=== PATIENT | male | born 1975 | race Caucasian/White ===

== ENCOUNTER 2018-01-28 21:14 | Inpatient (IN) ==
[2018-01-28] MEDS ORDERED: KETOROLAC 30 MG/1 ML VIAL IV STA (23:17)
[2018-01-28] MEDS ORDERED: MECLIZINE 25 MG TABLET PO STA (23:18)
[2018-01-28] MEDS ORDERED: hydrALAZINE 20 MG/1 ML VIAL IV STA (23:18)
[2018-01-29 00:04] LABS: Basophils % 0.2 % (0.0-0.8); Eosinophils # 0.1 10*3/uL (0.0-0.87); Hematocrit 37.9 VOL% (42.0-52.0); Hemoglobin 14.6 GM/DL (14.0-18.0); Immature Granulocytes % 0.7 %; Immature Granulocytes Absolute 0.06 #; Lymphocytes # 0.6 10*3/uL (1.4-4.0); Lymphocytes % 6.8 % (21.2-54.2); Mean Corpuscular HGB Conc 38.5 GM/DL (32-36); Mean Corpuscular Hemoglobin 34 PG (27-34); Mean Corpuscular Volume 88.3 FL (87-102); Mean Platelet Volume 9.7 FL (9.6-12.0); Monocytes # 0.7 10*3/uL (0.11-0.8); Monocytes % 8.5 % (1.7-12.7); Neutrophils # 6.9 10*3/uL (1.4-7.4); Neutrophils % 82.8 % (38.7-73.9); Platelet Count 117 T/CUMM (130-400); Red Blood Count 4.29 MC/CUMM (3.8-5.5); Red Cell Distribution Width 11.9 % (9.3-17.3); White Blood Count 8.4 T/CUMM (4-12)
[2018-01-29 00:12] LABS: Albumin 4.3 G/DL (3.4-5.0); Bilirubin,Total 1.9 MG/DL (0.2-1.0); Calcium 8.5 MG/DL (8.5-10.1); Potassium 3.6 MMOL/L (3.5-5.1); Total Protein 8.7 G/DL (6.4-8.3)
[2018-01-29] MEDS ORDERED: SODIUM CHLORIDE 3% INJ 500 ML IV SCH ×3 (00:30→14:05)
[2018-01-29 01:19] LABS: Calcium 8.3 MG/DL (8.5-10.1); Potassium 3.2 MMOL/L (3.5-5.1)
[2018-01-29] MEDS ORDERED: LORazepam 2 MG/1 ML VIAL ONE (08:45)
[2018-01-29] MEDS ORDERED: FUROSEMIDE 20 MG/2 ML VIAL IV ONE (09:04)
[2018-01-29 12:05] LABS: Apearance,Urine CLEAR (Clear); Bilirubin,Urine Negative (Negative); Blood, Urine Negative (Negative); Glucose,Urine (UA) Negative (Negative); Ketones,Urine 20 mg/dL (Negative); Mucus,Urine Occasional /LPF (Occasional); Nitrite,Urine Negative (Negative); Protein,Urine Negative; RBC,Urine <1 /HPF (0-4); Urine Color Yellow (Yellow); Urine Specific Gravity 1.006 (1.001-1.035); WBC,Urine 1 /HPF (0-6)
[2018-01-29] MEDS ORDERED: CLORAZEPATE 3.75 MG TABLET ONE (17:41)
[2018-01-29] MEDS: CLORAZEPATE 7.5 MG TABLET PO SCH ×2 (17:42→21:25)
[2018-01-29] MEDS ORDERED: POTASSIUM CHLORIDE 20 MEQ TABLET PO PRN (18:54)
[2018-01-29] MEDS: METOPROLOL TARTRATE 50 MG TABLET PO SCH (21:25)
[2018-01-29] MEDS ORDERED: DEXTROSE 5% 1,000 ML IV SCH (23:00)
[2018-01-30] MEDS ORDERED: LORazepam 2 MG/1 ML VIAL IM PRN (00:54)
[2018-01-30] MEDS ORDERED: DEXT 5% NACL 0.9% KCL 20 MEQ 20 MEQ/1,000 ML BAG IV SCH (01:30)
[2018-01-30] MEDS: POTASSIUM CHLORIDE INJ 20 MEQ, MAGNESIUM SULF INJ 1 GM in DEXTROSE 5% NACL 0.9% 1,000 ML IV SCH ×3 (01:39→21:53)
[2018-01-30 04:19] LABS: Basophils % 0.3 % (0.0-0.8); Eosinophils # 0.1 10*3/uL (0.0-0.87); Eosinophils % 1.4 % (0.00-10.9); Immature Granulocytes % 0.5 %; Immature Granulocytes Absolute 0.03 #; Lymphocytes # 0.3 10*3/uL (1.4-4.0); Lymphocytes % 4.8 % (21.2-54.2); Mean Corpuscular HGB Conc 37.2 GM/DL (32-36); Mean Corpuscular Hemoglobin 34 PG (27-34); Mean Corpuscular Volume 90.5 FL (87-102); Mean Platelet Volume 10.7 FL (9.6-12.0); Monocytes # 0.5 10*3/uL (0.11-0.8); Monocytes % 7.4 % (1.7-12.7); Neutrophils # 5.5 10*3/uL (1.4-7.4); Neutrophils % 85.6 % (38.7-73.9); Platelet Count 86 T/CUMM (130-400); Red Blood Count 3.98 MC/CUMM (3.8-5.5); Red Cell Distribution Width 11.9 % (9.3-17.3); White Blood Count 6.5 T/CUMM (4-12)
[2018-01-30 04:32] LABS: Hemoglobin 13.3 GM/DL (14.0-18.0)
[2018-01-30 04:45] LABS: Albumin 3.7 G/DL (3.4-5.0); Bilirubin,Total 2.2 MG/DL (0.2-1.0); Calcium 8.1 MG/DL (8.5-10.1); Free T4 (Free Thyroxine) 1.05 NG/DL (0.76-1.46); Osmolality,Calculated 228.9 MOS/KG (273-304); Potassium 3.2 MMOL/L (3.5-5.1); Thyroid Stimulating Hormone 2.16 uIU/ml (0.358-3.74); Total Protein 7.4 G/DL (6.4-8.3)
[2018-01-30 04:58] LABS: Hypochromasia 1+; Lymphocytes 6 % (20-55); Platelet Estimate Decreased; Segmented Neutrophils 89 % (50-85); Total Cells Counted 100
[2018-01-30 05:40] LABS: Hepatitis A Ab IgM Result Negative (Negative); Hepatitis B Core IgM Quant < 0.05 Index; Hepatitis B Core IgM Result Negative (Negative); Hepatitis B Surface Ag Quant 0.42 Index; Hepatitis B Surface Ag Result Negative (Negative); Hepatitis C Virus Ab Quant 0.14 Index; Hepatitis C Virus Ab Result Negative (Negative)
[2018-01-30 06:59] LABS: Apearance,Urine CLEAR (Clear); Bilirubin,Urine Negative (Negative); Blood, Urine Small mg/dL (Negative); Glucose,Urine (UA) Negative (Negative); Ketones,Urine 5 mg/dL (Negative); Nitrite,Urine Negative (Negative); Protein,Urine Negative; RBC,Urine <1 /HPF (0-4); Squamous Epithelial Cell,Urine Occasional /HPF (0-10); Urine Color Yellow (Yellow); Urine Specific Gravity 1.005 (1.001-1.035); WBC,Urine 3 /HPF (0-6)
[2018-01-30] MEDS ORDERED: FOLIC ACID 5 MG/1 ML VIAL IM SCH (09:00)
[2018-01-30] MEDS: MULTIVITAMIN (BEROCCA) TABLET PO SCH (09:33)
[2018-01-30] MEDS: FOLIC ACID INJ 1 MG in SYRINGE 1 EACH IV SCH (09:33)
[2018-01-30] MEDS: CLORAZEPATE 7.5 MG TABLET PO SCH ×3 (09:33→21:33)
[2018-01-30] MEDS: METOPROLOL TARTRATE 50 MG TABLET PO SCH ×3 (09:33→21:45)
[2018-01-30] MEDS: LORazepam 2 MG/1 ML VIAL IV PRN ×4 (10:07→21:57)
[2018-01-30] MEDS ORDERED: LORazepam 2 MG/1 ML VIAL IV ONE ×2 (12:56→13:30)
[2018-01-30] MEDS ORDERED: LORazepam 2 MG/1 ML VIAL IV PRN (13:24)
[2018-01-30] MEDS ORDERED: cefTRIAXone 1,000 MG VIAL IV SCH (21:00)
[2018-01-30] MEDS: cefTRIAXone 1,000 MG in SYRINGE 1 EACH IV SCH (21:47)
[2018-01-31] MEDS: LORazepam 2 MG/1 ML VIAL IV PRN ×10 (00:06→19:37)
[2018-01-31 05:53] LABS: Basophils % 0.3 % (0.0-0.8); Eosinophils # 0.1 10*3/uL (0.0-0.87); Eosinophils % 1.6 % (0.00-10.9); Hematocrit 39.2 VOL% (42.0-52.0); Hemoglobin 14.2 GM/DL (14.0-18.0); Immature Granulocytes % 1.1 %; Immature Granulocytes Absolute 0.07 #; Lymphocytes # 0.5 10*3/uL (1.4-4.0); Lymphocytes % 7.1 % (21.2-54.2); Mean Corpuscular HGB Conc 36.2 GM/DL (32-36); Mean Corpuscular Hemoglobin 34 PG (27-34); Mean Corpuscular Volume 94.9 FL (87-102); Monocytes # 0.8 10*3/uL (0.11-0.8); Monocytes % 11.8 % (1.7-12.7); Neutrophils # 4.9 10*3/uL (1.4-7.4); Neutrophils % 78.1 % (38.7-73.9); Platelet Count 105 T/CUMM (130-400); Red Blood Count 4.13 MC/CUMM (3.8-5.5); White Blood Count 6.3 T/CUMM (4-12)
[2018-01-31 05:58] LABS: Apearance,Urine CLEAR (Clear); Bacteria,Urine Occasional /HPF (Few); Bilirubin,Urine Negative (Negative); Blood, Urine Moderate mg/dL (Negative); Glucose,Urine (UA) 50 mg/dL (Negative); Ketones,Urine Negative (Negative); Mucus,Urine Occasional /LPF (Occasional); Nitrite,Urine Negative (Negative); Protein,Urine Negative; RBC,Urine 3 /HPF (0-4); Urine Color Yellow (Yellow); Urine Specific Gravity 1.009 (1.001-1.035); WBC,Urine 4 /HPF (0-6)
[2018-01-31 06:08] LABS: Albumin 3.5 G/DL (3.4-5.0); Bilirubin,Total 1.1 MG/DL (0.2-1.0); Calcium 7.6 MG/DL (8.5-10.1); Osmolality,Calculated 241.9 MOS/KG (273-304); Potassium 3.1 MMOL/L (3.5-5.1); Risk Ratio 1.71; Total Protein 7.4 G/DL (6.4-8.3)
[2018-01-31] MEDS: POTASSIUM CHLORIDE INJ 20 MEQ, MAGNESIUM SULF INJ 1 GM in DEXTROSE 5% NACL 0.9% 1,000 ML IV SCH ×3 (07:51→19:52)
[2018-01-31] MEDS: POTASSIUM CHLORIDE RIDER 10 MEQ in PREMIX 1 EACH IV PRN (08:14)
[2018-01-31] MEDS ORDERED: cloNIDine 0.1 MG TABLET PO SCH (09:00)
[2018-01-31] MEDS ORDERED: cloNIDine 0.1 MG/24 HR PATCH TRANSDERM SCH (09:00)
[2018-01-31] MEDS: FOLIC ACID INJ 1 MG in SYRINGE 1 EACH IV SCH (09:10)
[2018-01-31] MEDS: MULTIVITAMIN (BEROCCA) TABLET PO SCH (09:49)
[2018-01-31] MEDS: CLORAZEPATE 7.5 MG TABLET PO SCH ×4 (09:49→21:26)
[2018-01-31] MEDS: METOPROLOL TARTRATE 50 MG TABLET PO SCH ×2 (11:23→21:26)
[2018-01-31] MEDS: cefTRIAXone 1,000 MG in SYRINGE 1 EACH IV SCH (21:23)
[2018-02-01] MEDS: LORazepam 2 MG/1 ML VIAL IV PRN ×9 (00:33→19:31)
[2018-02-01 05:36] LABS: Basophils % 0.4 % (0.0-0.8); Eosinophils # 0.2 10*3/uL (0.0-0.87); Eosinophils % 3.7 % (0.00-10.9); Hematocrit 34.7 VOL% (42.0-52.0); Hemoglobin 12.6 GM/DL (14.0-18.0); Immature Granulocytes % 1.1 %; Immature Granulocytes Absolute 0.05 #; Lymphocytes # 0.5 10*3/uL (1.4-4.0); Lymphocytes % 10.8 % (21.2-54.2); Mean Corpuscular HGB Conc 36.3 GM/DL (32-36); Mean Corpuscular Hemoglobin 34 PG (27-34); Mean Corpuscular Volume 93.3 FL (87-102); Mean Platelet Volume 10.2 FL (9.6-12.0); Monocytes # 0.5 10*3/uL (0.11-0.8); Monocytes % 11.7 % (1.7-12.7); Neutrophils # 3.3 10*3/uL (1.4-7.4); Neutrophils % 72.3 % (38.7-73.9); Platelet Count 105 T/CUMM (130-400); Red Blood Count 3.72 MC/CUMM (3.8-5.5); Red Cell Distribution Width 12.1 % (9.3-17.3); White Blood Count 4.6 T/CUMM (4-12)
[2018-02-01 05:57] LABS: Albumin 3.3 G/DL (3.4-5.0); Bilirubin,Total 1.5 MG/DL (0.2-1.0); Osmolality,Calculated 255.1 MOS/KG (273-304); Potassium 3.6 MMOL/L (3.5-5.1); Total Protein 6.6 G/DL (6.4-8.3)
[2018-02-01] MEDS: POTASSIUM CHLORIDE INJ 20 MEQ, MAGNESIUM SULF INJ 1 GM in DEXTROSE 5% NACL 0.9% 1,000 ML IV SCH ×2 (06:08→17:03)
[2018-02-01] MEDS: CLORAZEPATE 7.5 MG TABLET PO SCH ×3 (08:59→21:30)
[2018-02-01] MEDS: METOPROLOL TARTRATE 50 MG TABLET PO SCH ×2 (09:00→21:07)
[2018-02-01] MEDS: MULTIVITAMIN (BEROCCA) TABLET PO SCH (09:05)
[2018-02-01] MEDS: FOLIC ACID INJ 1 MG in SYRINGE 1 EACH IV SCH (09:32)
[2018-02-01] MEDS: cefTRIAXone 1,000 MG in SYRINGE 1 EACH IV SCH (21:04)
[2018-02-02 04:32] LABS: Basophils % 0.4 % (0.0-0.8); Eosinophils # 0.1 10*3/uL (0.0-0.87); Eosinophils % 2.6 % (0.00-10.9); Hematocrit 38.6 VOL% (42.0-52.0); Hemoglobin 13.4 GM/DL (14.0-18.0); Immature Granulocytes Absolute 0.05 #; Lymphocytes # 0.4 10*3/uL (1.4-4.0); Lymphocytes % 8.7 % (21.2-54.2); Mean Corpuscular HGB Conc 34.7 GM/DL (32-36); Mean Corpuscular Hemoglobin 33 PG (27-34); Mean Corpuscular Volume 94.4 FL (87-102); Monocytes # 0.7 10*3/uL (0.11-0.8); Monocytes % 14.3 % (1.7-12.7); Neutrophils # 3.7 10*3/uL (1.4-7.4); Platelet Count 131 T/CUMM (130-400); Red Blood Count 4.09 MC/CUMM (3.8-5.5); Red Cell Distribution Width 12.5 % (9.3-17.3); White Blood Count 5.1 T/CUMM (4-12)
[2018-02-02 05:01] LABS: Albumin 3.7 G/DL (3.4-5.0); Bilirubin,Total 0.8 MG/DL (0.2-1.0); Calcium 8.7 MG/DL (8.5-10.1); Osmolality,Calculated 259.7 MOS/KG (273-304); Potassium 3.8 MMOL/L (3.5-5.1); Total Protein 7.6 G/DL (6.4-8.3)
[2018-02-02] MEDS: POTASSIUM CHLORIDE INJ 20 MEQ, MAGNESIUM SULF INJ 1 GM in DEXTROSE 5% NACL 0.9% 1,000 ML IV SCH ×3 (07:06→19:46)
[2018-02-02] MEDS: MULTIVITAMIN (BEROCCA) TABLET PO SCH (08:52)
[2018-02-02] MEDS: METOPROLOL TARTRATE 50 MG TABLET PO SCH ×2 (08:52→20:29)
[2018-02-02] MEDS: FOLIC ACID INJ 1 MG in SYRINGE 1 EACH IV SCH (09:25)
[2018-02-02] MEDS: CLORAZEPATE 7.5 MG TABLET PO SCH ×3 (12:39→20:29)
[2018-02-02] MEDS: cefTRIAXone 1,000 MG in SYRINGE 1 EACH IV SCH (20:29)
[2018-02-02] MEDS: LORazepam 2 MG/1 ML VIAL IV PRN ×3 (20:43→23:29)
[2018-02-03] MEDS ORDERED: HALOPERIDOL 5 MG/ML AMP ONE (00:45)
[2018-02-03] MEDS: HALOPERIDOL 5 MG/ML AMP IV PRN (00:48)
[2018-02-03] MEDS: cloNIDine 0.1 MG TABLET PO PRN ×3 (02:19→22:04)
[2018-02-03] MEDS: LORazepam 2 MG/1 ML VIAL IV PRN ×2 (02:21→16:45)
[2018-02-03 03:38] LABS: Basophils % 0.6 % (0.0-0.8); Eosinophils # 0.2 10*3/uL (0.0-0.87); Eosinophils % 2.6 % (0.00-10.9); Hematocrit 35.5 VOL% (42.0-52.0); Hemoglobin 12.5 GM/DL (14.0-18.0); Immature Granulocytes % 0.9 %; Immature Granulocytes Absolute 0.06 #; Lymphocytes # 0.7 10*3/uL (1.4-4.0); Lymphocytes % 10.1 % (21.2-54.2); Mean Corpuscular HGB Conc 35.2 GM/DL (32-36); Mean Corpuscular Hemoglobin 33 PG (27-34); Mean Corpuscular Volume 94.9 FL (87-102); Mean Platelet Volume 9.7 FL (9.6-12.0); Monocytes # 1.1 10*3/uL (0.11-0.8); Monocytes % 17.7 % (1.7-12.7); Neutrophils # 4.4 10*3/uL (1.4-7.4); Neutrophils % 68.1 % (38.7-73.9); Platelet Count 127 T/CUMM (130-400); Red Blood Count 3.74 MC/CUMM (3.8-5.5); Red Cell Distribution Width 12.3 % (9.3-17.3); White Blood Count 6.5 T/CUMM (4-12)
[2018-02-03 04:03] LABS: Albumin 3.3 G/DL (3.4-5.0); Bilirubin,Total 0.9 MG/DL (0.2-1.0); Calcium 8.1 MG/DL (8.5-10.1); Total Protein 7.1 G/DL (6.4-8.3)
[2018-02-03 04:04] LABS: Osmolality,Calculated 255.1 MOS/KG (273-304)
[2018-02-03 04:18] LABS: Eosinophils 3 % (0-10); Lymphocytes 16 % (20-55); Platelet Estimate Adequate; Polychromasia Few; Segmented Neutrophils 66 % (50-85); Total Cells Counted 100
[2018-02-03] MEDS: FOLIC ACID INJ 1 MG in SYRINGE 1 EACH IV SCH (09:10)
[2018-02-03] MEDS: METOPROLOL TARTRATE 50 MG TABLET PO SCH ×2 (09:13→20:12)
[2018-02-03] MEDS: MULTIVITAMIN (BEROCCA) TABLET PO SCH (09:14)
[2018-02-03] MEDS: CLORAZEPATE 7.5 MG TABLET PO SCH ×3 (09:14→20:11)
[2018-02-03] MEDS: POTASSIUM CHLORIDE INJ 20 MEQ, MAGNESIUM SULF INJ 1 GM in DEXTROSE 5% NACL 0.9% 1,000 ML IV SCH (09:23)
[2018-02-03] MEDS: LACTULOSE 20 GM/30 ML UDCUP PO SCH ×2 (15:50→20:11)
[2018-02-03] MEDS: cefTRIAXone 1,000 MG in SYRINGE 1 EACH IV SCH (20:12)
[2018-02-04] MEDS: LORazepam 2 MG/1 ML VIAL IV PRN (00:29)
[2018-02-04 03:38] LABS: Basophils # 0.1 10*3/uL (0.0-0.2); Basophils % 0.5 % (0.0-0.8); Eosinophils # 0.2 10*3/uL (0.0-0.87); Eosinophils % 1.5 % (0.00-10.9); Hematocrit 39.4 VOL% (42.0-52.0); Immature Granulocytes % 0.7 %; Immature Granulocytes Absolute 0.07 #; Lymphocytes # 0.7 10*3/uL (1.4-4.0); Lymphocytes % 6.8 % (21.2-54.2); Mean Corpuscular HGB Conc 35.5 GM/DL (32-36); Mean Corpuscular Hemoglobin 34 PG (27-34); Mean Corpuscular Volume 94.5 FL (87-102); Mean Platelet Volume 9.2 FL (9.6-12.0); Monocytes # 1.4 10*3/uL (0.11-0.8); Monocytes % 14.7 % (1.7-12.7); Neutrophils # 7.4 10*3/uL (1.4-7.4); Neutrophils % 75.8 % (38.7-73.9); Platelet Count 179 T/CUMM (130-400); Red Blood Count 4.17 MC/CUMM (3.8-5.5); Red Cell Distribution Width 12.1 % (9.3-17.3); White Blood Count 9.7 T/CUMM (4-12)
[2018-02-04 03:59] LABS: Albumin 3.6 G/DL (3.4-5.0); Bilirubin,Total 1.2 MG/DL (0.2-1.0); Calcium 9.1 MG/DL (8.5-10.1); Osmolality,Calculated 250.2 MOS/KG (273-304); Potassium 3.7 MMOL/L (3.5-5.1); Total Protein 7.6 G/DL (6.4-8.3)
[2018-02-04] MEDS: CLORAZEPATE 7.5 MG TABLET PO SCH ×3 (10:30→20:33)
[2018-02-04] MEDS: METOPROLOL TARTRATE 50 MG TABLET PO SCH ×2 (10:30→20:33)
[2018-02-04] MEDS: MULTIVITAMIN (BEROCCA) TABLET PO SCH (10:30)
[2018-02-04] MEDS: LACTULOSE 20 GM/30 ML UDCUP PO SCH ×2 (10:30→20:33)
[2018-02-04] MEDS: FOLIC ACID INJ 1 MG in SYRINGE 1 EACH IV SCH (12:20)
[2018-02-04] MEDS: DEXTROSE 5% NACL 0.9% 1,000 ML IV SCH (13:44)
[2018-02-04] MEDS ORDERED: MAGNESIUM SULF RIDER 4 GM in PREMIX 1 EACH IV PRN (19:03)
[2018-02-04] MEDS: cefTRIAXone 1,000 MG in SYRINGE 1 EACH IV SCH (20:33)
[2018-02-05] MEDS: MAGNESIUM SULF RIDER 2 GM in PREMIX 1 EACH IV PRN ×2 (01:15→10:47)
[2018-02-05] MEDS: DEXTROSE 5% NACL 0.9% 1,000 ML IV SCH (03:05)
[2018-02-05 03:20] LABS: Basophils % 0.5 % (0.0-0.8); Eosinophils # 0.2 10*3/uL (0.0-0.87); Eosinophils % 3.5 % (0.00-10.9); Hematocrit 37.7 VOL% (42.0-52.0); Hemoglobin 13.3 GM/DL (14.0-18.0); Immature Granulocytes % 0.6 %; Immature Granulocytes Absolute 0.04 #; Lymphocytes # 0.6 10*3/uL (1.4-4.0); Lymphocytes % 9.8 % (21.2-54.2); Mean Corpuscular HGB Conc 35.3 GM/DL (32-36); Mean Corpuscular Hemoglobin 34 PG (27-34); Mean Corpuscular Volume 97.2 FL (87-102); Mean Platelet Volume 9.3 FL (9.6-12.0); Monocytes # 1.2 10*3/uL (0.11-0.8); Monocytes % 19.1 % (1.7-12.7); Neutrophils # 4.2 10*3/uL (1.4-7.4); Neutrophils % 66.5 % (38.7-73.9); Platelet Count 132 T/CUMM (130-400); Red Blood Count 3.88 MC/CUMM (3.8-5.5); Red Cell Distribution Width 12.4 % (9.3-17.3); White Blood Count 6.3 T/CUMM (4-12)
[2018-02-05 04:03] LABS: Eosinophils 2 % (0-10); Lymphocytes 10 % (20-55); Platelet Estimate Normal; Polychromasia Few; Segmented Neutrophils 82 % (50-85); Total Cells Counted 100
[2018-02-05] MEDS: MULTIVITAMIN (BEROCCA) TABLET PO SCH (07:59)
[2018-02-05] MEDS: CLORAZEPATE 7.5 MG TABLET PO SCH ×3 (07:59→20:19)
[2018-02-05] MEDS: LOSARTAN 50 MG TABLET PO SCH (07:59)
[2018-02-05] MEDS: FOLIC ACID INJ 1 MG in SYRINGE 1 EACH IV SCH (07:59)
[2018-02-05] MEDS: LACTULOSE 20 GM/30 ML UDCUP PO SCH ×2 (07:59→20:24)
[2018-02-05] MEDS: METOPROLOL TARTRATE 50 MG TABLET PO SCH ×2 (07:59→20:19)
[2018-02-05 08:27] LABS: Calcium 8.1 MG/DL (8.5-10.1); Osmolality,Calculated 256.9 MOS/KG (273-304); Potassium 3.3 MMOL/L (3.5-5.1)
[2018-02-05] MEDS ORDERED: POTASSIUM CHLORIDE 20 MEQ TABLET PO ONE (08:46)
[2018-02-05] MEDS: hydrALAZINE 20 MG/1 ML VIAL IV PRN (09:12)
[2018-02-05] MEDS: BISMUTH SUBSALICYLATE 30 ML/524 MG 240 ML/BOTTLE PO PRN ×2 (13:25→17:16)
[2018-02-05] MEDS: cefTRIAXone 1,000 MG in SYRINGE 1 EACH IV SCH (20:19)
[2018-02-06] MEDS: cloNIDine 0.1 MG TABLET PO PRN (00:48)
[2018-02-06 05:41] LABS: Calcium 8.2 MG/DL (8.5-10.1); Osmolality,Calculated 257.8 MOS/KG (273-304); Potassium 3.5 MMOL/L (3.5-5.1)
[2018-02-06] MEDS: MULTIVITAMIN (BEROCCA) TABLET PO SCH (08:22)
[2018-02-06] MEDS: LOSARTAN 50 MG TABLET PO SCH (08:22)
[2018-02-06] MEDS: LACTULOSE 20 GM/30 ML UDCUP PO SCH ×3 (08:22→21:56)
[2018-02-06] MEDS: METOPROLOL TARTRATE 50 MG TABLET PO SCH ×2 (08:22→21:56)
[2018-02-06] MEDS: FOLIC ACID INJ 1 MG in SYRINGE 1 EACH IV SCH (08:22)
[2018-02-06] MEDS: CLORAZEPATE 7.5 MG TABLET PO SCH ×3 (08:22→21:55)
[2018-02-06] MEDS: MAGNESIUM SULF RIDER 2 GM in PREMIX 1 EACH IV PRN (08:23)
[2018-02-06] MEDS ORDERED: MAGNESIUM SULF RIDER 2 GM in PREMIX 1 EACH IV STA (08:34)
[2018-02-06] MEDS: DEXTROSE 5% NACL 0.9% 1,000 ML IV SCH ×2 (09:36)
[2018-02-06] MEDS: LORazepam 2 MG/1 ML VIAL IV PRN (21:57)
[2018-02-07] MEDS: hydrALAZINE 20 MG/1 ML VIAL IV PRN ×2 (00:41→15:45)
[2018-02-07] MEDS: DEXTROSE 5% NACL 0.9% 1,000 ML IV SCH ×2 (03:56→17:19)
[2018-02-07 04:54] LABS: Basophils % 0.7 % (0.0-0.8); Eosinophils # 0.2 10*3/uL (0.0-0.87); Eosinophils % 3.1 % (0.00-10.9); Hematocrit 35.5 VOL% (42.0-52.0); Hemoglobin 12.5 GM/DL (14.0-18.0); Immature Granulocytes % 0.7 %; Immature Granulocytes Absolute 0.04 #; Lymphocytes % 15.8 % (21.2-54.2); Mean Corpuscular HGB Conc 35.2 GM/DL (32-36); Mean Corpuscular Hemoglobin 34 PG (27-34); Mean Corpuscular Volume 95.7 FL (87-102); Mean Platelet Volume 9.8 FL (9.6-12.0); Monocytes # 1.1 10*3/uL (0.11-0.8); Monocytes % 17.7 % (1.7-12.7); Neutrophils # 3.8 10*3/uL (1.4-7.4); Platelet Count 258 T/CUMM (130-400); Red Blood Count 3.71 MC/CUMM (3.8-5.5); Red Cell Distribution Width 12.1 % (9.3-17.3); White Blood Count 6.2 T/CUMM (4-12)
[2018-02-07 05:16] LABS: Albumin 3.4 G/DL (3.4-5.0); Bilirubin,Total 0.8 MG/DL (0.2-1.0); Calcium 8.3 MG/DL (8.5-10.1); Osmolality,Calculated 258.7 MOS/KG (273-304); Potassium 3.4 MMOL/L (3.5-5.1); Total Protein 6.9 G/DL (6.4-8.3)
[2018-02-07 05:27] LABS: Eosinophils 7 % (0-10); Lymphocytes 16 % (20-55); Segmented Neutrophils 62 % (50-85); Total Cells Counted 100
[2018-02-07 05:28] LABS: Atypical Lymphocytes Few; Hypochromasia Slight; Microcytosis Slight; Platelet Estimate Normal
[2018-02-07] MEDS: POTASSIUM CHLORIDE 20 MEQ TABLET PO SCH ×2 (08:42→21:08)
[2018-02-07] MEDS: LACTULOSE 20 GM/30 ML UDCUP PO SCH ×4 (08:42→21:22)
[2018-02-07] MEDS: MULTIVITAMIN (BEROCCA) TABLET PO SCH (08:42)
[2018-02-07] MEDS: LOSARTAN 50 MG TABLET PO SCH (08:42)
[2018-02-07] MEDS: FOLIC ACID INJ 1 MG in SYRINGE 1 EACH IV SCH (08:45)
[2018-02-07] MEDS: METOPROLOL TARTRATE 50 MG TABLET PO SCH ×2 (08:52→21:08)
[2018-02-07] MEDS: CLORAZEPATE 3.75 MG TABLET PO SCH ×3 (08:52→21:08)
[2018-02-07] MEDS: POTASSIUM CHLORIDE RIDER 10 MEQ in PREMIX 1 EACH IV PRN ×3 (08:53→11:38)
[2018-02-07] MEDS ORDERED: traMADol 50 MG TABLET PO PRN (12:34)
[2018-02-07] MEDS: HALOPERIDOL 5 MG/ML AMP IV PRN (21:11)
[2018-02-08 04:57] LABS: Basophils % 0.7 % (0.0-0.8); Eosinophils # 0.2 10*3/uL (0.0-0.87); Eosinophils % 3.9 % (0.00-10.9); Hematocrit 33.8 VOL% (42.0-52.0); Immature Granulocytes % 0.5 %; Immature Granulocytes Absolute 0.03 #; Lymphocytes # 0.8 10*3/uL (1.4-4.0); Mean Corpuscular HGB Conc 35.5 GM/DL (32-36); Mean Corpuscular Hemoglobin 34 PG (27-34); Mean Corpuscular Volume 96.6 FL (87-102); Mean Platelet Volume 9.7 FL (9.6-12.0); Monocytes # 0.8 10*3/uL (0.11-0.8); Monocytes % 14.9 % (1.7-12.7); Neutrophils # 3.7 10*3/uL (1.4-7.4); Platelet Count 224 T/CUMM (130-400); Red Cell Distribution Width 12.4 % (9.3-17.3); White Blood Count 5.6 T/CUMM (4-12)
[2018-02-08 05:19] LABS: Albumin 3.1 G/DL (3.4-5.0); Bilirubin,Total 0.9 MG/DL (0.2-1.0); Osmolality,Calculated 256.8 MOS/KG (273-304); Potassium 3.8 MMOL/L (3.5-5.1); Total Protein 6.6 G/DL (6.4-8.3)
[2018-02-08] MEDS: DEXTROSE 5% NACL 0.9% 1,000 ML IV SCH (06:40)
[2018-02-08 07:33] VITALS: BP 165/113
[2018-02-08] MEDS: CLORAZEPATE 3.75 MG TABLET PO SCH (08:35)
[2018-02-08] MEDS: POTASSIUM CHLORIDE 20 MEQ TABLET PO SCH (08:35)
[2018-02-08] MEDS: LOSARTAN 50 MG TABLET PO SCH (08:35)
[2018-02-08] MEDS: MULTIVITAMIN (BEROCCA) TABLET PO SCH (08:35)
[2018-02-08] MEDS: METOPROLOL TARTRATE 50 MG TABLET PO SCH (08:35)
[2018-02-08] MEDS: FOLIC ACID INJ 1 MG in SYRINGE 1 EACH IV SCH (08:36)
[2018-02-08] MEDS: LACTULOSE 20 GM/30 ML UDCUP PO SCH ×2 (08:36→08:39)
[2018-02-08] MEDS ORDERED: cloNIDine 0.1 MG TABLET PO SCH (09:00)
== END 2018-02-08 09:10 | disposition home or self-care (01) | DRG 897 ==
LOC: N.ED 21:14 → N.EDINP 01-29 00:39 → N.4E 01-29 02:15 → N.CC 01-29 08:55 → N.ICU 02-03 16:55 → N.2E 02-05 10:40
PROVIDERS: ADMIT Family Medicine; ATTEND Family Medicine